=== PATIENT | male | born 1950 | race Caucasian/White ===

== ENCOUNTER 2024-02-23 19:13 | Emergency (ER) | payer OTHER, SELFPAY ==
[2024-02-23 19:15] VITALS: BP 194/92
--- NOTE | 2024-02-24 04:22 | ED.GENMED ---
History of Present Illness
General
Chief Complaint: Medication Reaction
Source: patient and spouse
Exam Limitations: none
Time Seen by Provider: 02/23/24 21:39
Nursing documentation reviewed up to this point in time: agreed with
History of Present Illness
History of Present Illness:
73-year-old male with past medical history as documented presents to the emergency room with his for evaluation after suicidal ideation a few days ago. Patient says that he has a longstanding history of depression and PTSD. He says that he
has been on bupropion and escitalopram at stable doses for 30+ years. He has had no recent adjustments. He says that recently he has been under significant stress�he says that his mother recently and they have been trying to sell her
house in [place] with some difficulty; his and him are also working on purchasing another house which has been stressful. He says he has been having issues with his prostate that he is following with urology for; he has a biopsy scheduled for
March which has also been worrying him. He says that 2 days ago he was driving back from [facility] to [place] and during the long drive he became very depressed about his situation and he says that he briefly contemplated suicide. He says that he did
consider shooting himself with a gun. He says that he never acted on this thought and was actually quite concerned about it. He says that it went away after few hours but he did bring it to the attention of his primary doctor and ultimately he was
referred to the emergency room today. He says he no longer feels suicidal and has a much more positive outlook since he has returned home. He believes that the stress contributed to his feeling. He denies any homicidal ideation. Denies any
hallucinations. He denies any physical complaints today.
Review of Systems
Review of Systems
All Other Systems: ROS reviewed and negative except as documented in HPI and ROS
Constitutional: Denies fever
Respiratory: Denies trouble breathing
Cardiac: Denies chest pain
ABD/GI: Denies abdominal pain
: Denies flank pain
Musculoskeletal: Denies neck pain or back pain
Neurological: Denies headache
Psychiatric: Reports depression and suicidal; Denies hallucinations
Phy Exam
Physical Exam
Physical Exam:
General: Well appearing and non-toxic
HEENT: protecting airway
Neck: appears supple
CV: No evidence of cyanosis
Resp: No accessory muscle use
Abd: Non-distended
Extremities: No deformities
Neuro: Alert
Psych: Normal affect, 'good' mood, good insight and judgment, forward thinking
Skin: Intact
Scores
Heart Failure Risk
Heart Failure Risk Score: Not Applicable
Heart Score for Chest Pain Patients
STEMI patient?: Not applicable
Withdrawal Assessment of Alcohol
Withdrawal Assessment Completed?: Not applicable
Course
Orders/Labs/Results
Orders:
Orders
02/23/24 19:18
Crisis Consult Urgent
Reason for Consult: SUELISE THOUGHT 2 DAYS AGO, JUST ARRIVED FROM [place] TODAY
1:1 Observation - Suicide/ Violent Behavior As Directed
Vital Signs
Initial and Last Documented VS:
Initial Vital Signs
Temp Pulse Resp BP Pulse Ox
37.3 C 84 18 194/92 97
02/23/24 19:15 02/23/24 19:15 02/23/24 19:15 02/23/24 19:15 02/23/24 19:15
Last Documented Vital Signs
Temp Pulse Resp BP Pulse Ox
37.3 C 84 18 194/92 97
02/23/24 19:15 02/23/24 19:15 02/23/24 19:15 02/23/24 19:15 02/23/24 19:15
MDM/Problems Addressed
Differential Diagnosis Includes:
Suicidal ideation
MDM/Problems Addressed:
73-year-old male presents to the emergency room for evaluation after an episode of suicidal ideation that occurred in the setting of heavy personal stress recently with the passing of his mother and attempts at selling/buying a house, long drive
from [place]. He disclosed this to his primary and was referred to the emergency room today. He has no physical complaints and says he is feeling much better. He appears to be forward thinking here and has not had recurrence of his suicidal
thoughts. In my judgment he is not acutely suicidal. I did discuss with our crisis team to perform an assessment and they agreed, no indication for inpatient psychiatric treatment from their perspective but they did refer him for outpatient
psychiatric treatment. Patient was concerned about whether he needed adjustment to his psychiatric medications�my inclination given that his symptoms have improved and were likely related to acute stressors is that we should not adjust his doses at
this point as they have been stable for 30+ years. I did reach out to our psychiatrist here who agreed no acute change indicated at this point, can follow-up as an outpatient to discuss if this is necessary. Unfortunately prior to receiving his
discharge paperwork patient did leave the hospital (he already received resources from our crisis staff but did not stay for ER discharge paperwork) but I did have a chance to explain this plan to him prior to discharge.
Chronic conditions affecting care:
Depression, PTSD
Acute Exacerbation and/or Progression of Chronic Illness:
Acutely hypertensive
Acute Exacerbation and/or Progression of Chronic Illness: HTN
*Pulse Oximetry
Patient hypoxic: no
*Critical Care Note
Total Time (30-74mins, 75-104mins- exclusive of procedures): Not Applicable
Data Reviewed
Source: patient
Patient Management
Discussion with other providers: Finish Off Operator (Discussed with psychiatry) and Other (Discussed with crisis staff)
ED Attending Note
-
Portions of this chart may have been created with voice recognition software.� Occasional wrong word or��sound alike� substitutions may have occurred due to the inherent limitations of voice recognition software.
Discharge Plan
Departure
Patient Disposition: Home (Routine Discharge)
Patient with high blood pressure during this ER visit?: Yes
Discharge Problem:
Suicidal ideations
Instructions: Suicide prevention, BLOOD PRESSURE
Prescriptions:
No Action
losartan 50 mg Tablet
50 mg PO DAILY
tamsulosin 0.4 mg Capsule
0.4 mg PO HS
esomeprazole magnesium 40 mg Capsule,Delayed Release(Dr/Ec)
40 mg PO HS
escitalopram oxalate 20 mg Tablet
20 mg PO HS
bupropion HCl 150 mg Tablet Extended Release 24 Hr
150 mg PO DAILY
fenofibrate nanocrystallized 145 mg Tablet
145 mg PO DAILY
Xarelto 20 mg Tablet
20 mg PO DAILY
Referrals:
[facility] [Other]
Activity Restrictions/Additional Instructions:
Thank you for visiting the Emergency Department at [facility].
1. Please schedule a follow up appointment as directed. Call first thing tomorrow morning to make an appointment.
2. If indicated, please take your medications as instructed and indicated on discharge paperwork.
3. If any of your symptoms do not improve, or persist, or become more severe within 6-12 hours, please return to the emergency department for further care.
4. Please return to the emergency department if you develop a headache, neck pain/stiffness, fever greater than 100.4F, chest pain, shortness of breath, persistent nausea, vomiting, slurred speech, difficulty walking, numbness/tingling, weakness,
signs of infection or any other symptoms that are worrisome to you.
Please call [phone] if you have any questions.
Interventions
Interventions:
*Risk Screen - Suicide Last Done: 02/23/24 19:15
*General Assessment Last Done: 02/23/24 20:25
*Neglect/Abuse Screening Last Done: 02/23/24 19:15
*ED COVID-19 Vaccine History Last Done: 02/23/24 20:25
*Nursing Disposition Last Done: 02/23/24 22:48
ED-Skin Assessment Last Done: 02/23/24 21:04
ED- Pulmonary Assessment Last Done: 02/23/24 21:04
ED-EENT Assessment Last Done: 02/23/24 21:04
Discharge Date and Time
Discharge Date/Time: 02/23/24 22:51
Print Language: MALAY
== END 2024-02-23 22:51 | disposition home or self-care (01) ==
LOC: EMR 19:13
PROVIDERS: EMERGENCY PHYSICIAN Emergency Medicine
DX: R45.851 Suicidal ideations (principal); R45.6 Violent behavior; F32.A Depression, unspecified; F43.10 Post-traumatic stress disorder, unspecified; I10 Essential (primary) hypertension
CPT/HCPCS: 99282